=== PATIENT | female | born 2000 | race Caucasian/White ===

== ENCOUNTER 2021-06-01 10:56 | Emergency (ER) | payer OTHER ==
[~2021-06-01] VITALS: Ht 160 cm; Wt 61.2 kg
[2021-06-01] MEDS ORDERED: Prednisone20 MG PO (12:42)
== END 2021-06-01 12:53 | disposition home or self-care (01) ==
LOC: ER 10:56
DX: L25.9 Unspecified contact dermatitis, unspecified cause (principal); F17.290 Nicotine dependence, other tobacco product, uncomplicated
CPT/HCPCS: 96372; 99282-25; A9270; J1100